=== PATIENT | female | born 1980 | race Caucasian/White ===

== ENCOUNTER → 2016-11-06 | Outpatient (REF) | payer OTHER | LOC: M SFHCLERA 15:13 | PROVIDERS: ATTEND Physician Assistant | DX: E28.2 Polycystic ovarian syndrome (principal); E03.9 Hypothyroidism, unspecified ==

== ENCOUNTER → 2017-06-09 | Outpatient (REF) | payer OTHER ==
[2017-06-09 12:08] LABS: FREE T4 0.85 NG/DL (0.76-1.46)
[2017-06-09 12:10] LABS: ESTIMATED AVERAGE GLUCOSE 123 MG/DL (60-110); HEMOGLOBIN A1c 5.9 %
== END ==
LOC: M SFHCLERA 09:21
DX: E03.9 Hypothyroidism, unspecified (principal); R73.01 Impaired fasting glucose

== ENCOUNTER → 2017-06-16 | Outpatient (REF) | payer OTHER | LOC: M LAB REF 17:45 | DX: N92.0 Excessive and frequent menstruation with regular cycle (principal) | CPT/HCPCS: 88304 ==

== ENCOUNTER 2017-06-24 09:09 | Day surgery (SDC) | payer OTHER ==
[~2017-06-24 09:09] MED LIST: GLYCOPYRROLATE INJ 0.2 MG/ML 2 ML VIAL As Ordered; HYDROmorphone HCL 2 MG/ML 1ML VIAL (J1170) As Ordered; KETOROLAC 60 MG/2 ML VIAL (J1885) As Ordered; LIDOCAINE 2% INJ 100 MG/5 ML SDV (FOR ANES.) As Ordered; MIDAZOLAM INJ 2 MG/2 ML VIAL (J2250) As Ordered; NEOSTIGMINE 10 MG/10 ML VIAL (J2710) As Ordered; ONDANSETRON 4MG/2ML VIAL (J2405) As Ordered; PROPOFOL 200 MG/20 ML VIAL As Ordered; ROCURONIUM BROMIDE 50 MG/5 ML VIAL As Ordered; dexameTHASONE 4 MG/ML 1ML VIAL (J1100) As Ordered; fentaNYL 100 MCG/2 ML INJECTION (J3010) As Ordered
[2017-06-24 10:06] LABS: HEMATOCRIT 39.6 % (36.0-47.0); HEMOGLOBIN 13.4 g/dl (12.0-16.0); MEAN CORPUSCULAR HEMOGLOBIN 30.3 pg (27.0-33.0); MEAN CORPUSCULAR HGB CONC 33.8 g/dl (32.0-36.5); MEAN CORPUSCULAR VOLUME 89.6 fl (80.0-96.0); PLATELET COUNT, AUTOMATED 302 10^3/uL (150-450); RED BLOOD COUNT 4.42 10^6/uL (4.00-5.40); RED CELL DISTRIBUTION WIDTH 12.2 % (11.5-14.5); WHITE BLOOD COUNT 9.8 10^3/uL (4.0-10.0)
[2017-06-24 10:34] LABS: CONTROL LINE HCG INT CTR LINE PRESENT; HCG, SERUM QUALITATIVE NEGATIVE (NEGATIVE)
[2017-06-24] MEDS ORDERED: fentaNYL 250 MCG/5 ML INJECTION (J3010) As Ordered ×2 (11:06→12:26)
[2017-06-24] MEDS: METHYLENE BLUE 0.5% (5MG/ML) 10 ML AMP (PROVAYBLUE)(Q9968 PER 1MG) As Ordered (12:45)
[2017-06-24] MEDS: BUPIVACAINE HCL 0.25% 30 ML VIAL As Ordered (12:45)
[2017-06-24] MEDS ORDERED: LIDOCAINE 2% JELLY 30 ML As Ordered (13:16)
[2017-06-24] MEDS ORDERED: PERCOCET 5MG/325MG TAB PO ×2 (13:45)
[2017-06-24] MEDS ORDERED: PROMETHAZINE INJ 25 MG/ML VIAL (J2550) IV (13:45)
[2017-06-24] MEDS ORDERED: ONDANSETRON 4MG/2ML VIAL (J2405) IV (13:45)
[2017-06-24] MEDS ORDERED: HYDROmorphone HCL 1 MG/ML SYRINGE (J1170) IV (13:45)
[2017-06-24] MEDS ORDERED: LR 1,000 ML IV ×2 (13:45→14:00)
[2017-06-24] MEDS ORDERED: MORPHINE 4 MG/ML 1ML VIAL (J2270) IV (13:45)
[2017-06-24] MEDS ORDERED: fentaNYL 100 MCG/2 ML INJECTION (J3010) IV (13:45)
[2017-06-24] MEDS: PERCOCET 5MG/325MG TAB PO (14:00)
[2017-06-24] MEDS: KETOROLAC 30 MG/ML VIAL (J1885) IV (17:33)
[2017-06-24] MEDS ORDERED: zolPIDEM TARTRATE 10MG TAB PO (21:00)
== END 2017-06-24 18:28 | disposition home or self-care (01) ==
LOC: M SDC 09:09 → M PED 14:22 → M SDC 18:28
DX: N93.9 Abnormal uterine and vaginal bleeding, unspecified (principal); R10.2 Pelvic and perineal pain; E03.9 Hypothyroidism, unspecified; F41.9 Anxiety disorder, unspecified; F32.9 Major depressive disorder, single episode, unspecified; G43.909 Migraine, unspecified, not intractable, without status migrainosus; F17.210 Nicotine dependence, cigarettes, uncomplicated; Z79.899 Other long term (current) drug therapy; Z88.2 Allergy status to sulfonamides; Z88.8 Allergy status to other drugs, medicaments and biological substances
CPT/HCPCS: 58571